=== PATIENT | female | born 1945 | race Caucasian/White ===

== ENCOUNTER 2018-01-22 09:28 | Outpatient (CLI) | payer MEDICARE | END 2018-01-22 09:29 | disposition home or self-care (01) | LOC: BICMAMMO 09:28 | PROVIDERS: ATTEND Obstetrics & Gynecology | DX: Z12.31 Encounter for screening mammogram for malignant neoplasm of breast (principal) | CPT/HCPCS: 77063; 77067 ==

== ENCOUNTER 2019-02-13 08:44 | Outpatient (CLI) | payer MEDICARE ==
--- NOTE | 2019-02-13 09:14 | MMO ---
Bilateral MAMMO Bilat Screen [facility]. CLINICAL HISTORY: Patient is 74 years old and is seen for screening. The patient has no family history of breast cancer. The patient has no personal history of cancer. VIEWS: The views performed were: bilateral craniocaudal with tomosynthesis and bilateral mediolateral oblique with tomosynthesis. FILMS COMPARED: The present examination has been compared to prior imaging studies performed at [facility] on 11/17/2014, 12/09/2015, 12/15/2016 and 01/22/2018. This study has been interpreted with the assistance of computer-aided detection. MAMMOGRAM FINDINGS: There are scattered fibroglandular densities. There are vascular calcifications seen in both breasts. There are no suspicious masses, suspicious calcifications, or new areas of architectural distortion. IMPRESSION: A ROUTINE FOLLOW-UP MAMMOGRAM IN 1 YEAR IS RECOMMENDED. THE RESULTS OF THIS EXAM WERE SENT TO THE PATIENT. ACR BI-RADS Category 2 - Benign finding MAMMOGRAPHY NOTE: 1. A negative mammogram report should not delay a biopsy if a dominant of clinically suspicious mass is present. 2. Approximately 10% to 15% of breast cancers are not detected by mammography. 3. Adenosis and dense breasts may obscure an underlying neoplasm. Reported by: HERNANDEZ DOAN MD Electonically Signed: [id number]
== END 2019-02-13 08:45 | disposition home or self-care (01) ==
LOC: BICMAMMO 08:44
PROVIDERS: ATTEND Obstetrics & Gynecology
DX: Z12.31 Encounter for screening mammogram for malignant neoplasm of breast (principal)
CPT/HCPCS: 77063; 77067

== ENCOUNTER 2020-03-04 10:18 | Outpatient (CLI) | payer MEDICARE ==
--- NOTE | 2020-03-04 11:34 | BD ---
EXAM: DEXA bone density examination HISTORY: Osteoporosis screening COMPARISON: None FINDINGS: L1--bone mineral density 0.545 g/sq cm; T score -4.0. Z score -2.0 L2--bone mineral density 0.651 g/sq cm; T score -3.4; Z score -1.2 L3--bone mineral density 0.693 g/sq cm; T score -3.6; Z score -1.2 L4--bone mineral density 0.663 g/sq cm; T score -3.6, Z score -1.2 Total L1-L4--bone mineral density 0.642 g/sq cm; T score -3.7, Z score -1.4 Left femoral neck--bone mineral density0.467; T score -3.4, Z score -1.5 Total proximal left femur--bone mineral density 0.692; T score -2.0, Z score -0.4 IMPRESSION: Based on the WHO criteria, the patient's bone mineral density is consideredOsteoporotic. The patient is at high risk for fracture.
--- NOTE | 2020-03-04 12:07 | MMO ---
Bilateral MAMMO Bilat Screen [facility]. CLINICAL HISTORY: Patient is 75 years old and is seen for screening. The patient has no family history of breast cancer. The patient has no personal history of cancer. VIEWS: The views performed were: bilateral craniocaudal with tomosynthesis and bilateral mediolateral oblique with tomosynthesis. FILMS COMPARED: The present examination has been compared to prior imaging studies performed at [facility] on 12/09/2015, 12/15/2016, 01/22/2018 and 02/13/2019. This study has been interpreted with the assistance of computer-aided detection. MAMMOGRAM FINDINGS: The breasts are almost entirely fat. There are stable benign appearing calcifications seen in both breasts. There are no suspicious masses, suspicious calcifications, or new areas of architectural distortion. IMPRESSION: THERE IS NO MAMMOGRAPHIC EVIDENCE OF MALIGNANCY. A ROUTINE FOLLOW-UP MAMMOGRAM IN 1 YEAR IS RECOMMENDED. THE RESULTS OF THIS EXAM WERE SENT TO THE PATIENT. ACR BI-RADS Category 2 - Benign finding MAMMOGRAPHY NOTE: 1. A negative mammogram report should not delay a biopsy if a dominant of clinically suspicious mass is present. 2. Approximately 10% to 15% of breast cancers are not detected by mammography. 3. Adenosis and dense breasts may obscure an underlying neoplasm. Reported by: FATUMA JUNE MD Electonically Signed: [id number]
== END 2020-03-04 10:19 | disposition home or self-care (01) ==
LOC: BICMAMMO 10:18
PROVIDERS: ATTEND Obstetrics & Gynecology
DX: Z12.31 Encounter for screening mammogram for malignant neoplasm of breast (principal); M85.89 Other specified disorders of bone density and structure, multiple sites
CPT/HCPCS: 77063; 77067; 77080

== ENCOUNTER 2021-03-17 10:20 | Outpatient (CLI) | payer MEDICARE, OTHER | END 2021-03-17 10:21 | disposition home or self-care (01) | LOC: BICMAMMO 10:20 | PROVIDERS: ATTEND Obstetrics & Gynecology | DX: Z12.31 Encounter for screening mammogram for malignant neoplasm of breast (principal); M81.0 Age-related osteoporosis without current pathological fracture | CPT/HCPCS: 77063; 77067; 77080 ==

== ENCOUNTER 2022-03-21 08:59 | Outpatient (CLI) | payer MEDICARE, OTHER | END 2022-03-21 09:00 | disposition home or self-care (01) | LOC: BICMAMMO 08:59 | PROVIDERS: ATTEND Obstetrics & Gynecology | DX: M81.0 Age-related osteoporosis without current pathological fracture (principal) | CPT/HCPCS: 77080 ==

== ENCOUNTER 2022-06-08 09:35 | Outpatient (CLI) | payer MEDICARE, OTHER | END 2022-06-08 09:36 | disposition home or self-care (01) | LOC: BICMAMMO 09:35 | PROVIDERS: ATTEND Obstetrics & Gynecology | DX: Z12.31 Encounter for screening mammogram for malignant neoplasm of breast (principal); R92.1 Mammographic calcification found on diagnostic imaging of breast | CPT/HCPCS: 77063; 77067 ==